=== PATIENT | female | born 1940 | race Caucasian/White ===

== ENCOUNTER 2016-09-19 07:24 | Day surgery (SDC) | payer MEDICARE, BC ==
[2016-09-19] MEDS ORDERED: Sodium Chloride 0.9% 1,000 ML IV SCH (08:00)
[2016-09-19] MEDS ORDERED: Midazolam 1 MG/ML 2 ML SDV ONE (08:19)
[2016-09-19] MEDS ORDERED: fentaNYL 100 MCG/2 ML SDV ONE (08:19)
[2016-09-19] MEDS ORDERED: Propofol 200 MG/20 ML SDV ONE (08:19)
[2016-09-19] MEDS ORDERED: Ondansetron 4 MG/2 ML SDV ONE (08:58)
--- NOTE | 2016-09-19 10:33 | OR ---
DATE OF PROCEDURE: 09/19/2016 PROCEDURE: Colonoscopy. FINDINGS: 1. Diverticulosis, extensive, but most densely concentrated in the traditional pattern of sigmoid colon. 2. Descending colon polyp #1, approximately 5 mm, completely removed using cold biopsy forceps. 3. Descending colon polyp #2, approximately 5 mm, completely removed using cold biopsy forceps. COMPLICATIONS: None. ASSISTANTS: None. ANESTHESIA: MAC. RISKS: Risks, benefits, alternatives, and limitations including, but not limited to infection, bleeding, and perforation were explained to the patient, and they wished to proceed. PREOPERATIVE DIAGNOSIS: History of colon polyps. POSTOPERATIVE DIAGNOSIS: History of colon polyps. PROCEDURE IN DETAIL: The patient was placed in the left lateral decubitus position. Digital rectal exam was performed without abnormality. The scope was introduced and advanced atraumatically to the ileocecal valve. The scope was brought back to the ascending, transverse, descending colon, and retroflexed. The aforementioned polyps were identified and completely removed. The diverticulosis would be described as not actively bleeding. Most dense in the sigmoid colon and no evidence of diverticulitis. No abnormality on retroflex. The patient tolerated the procedure well. Yfn Carrillo MD /[id number]
[2016-09-19 11:15] VITALS: BP 111/53
== END 2016-09-19 11:34 | disposition home or self-care (01) ==
LOC: JP.SDS 07:24
PROVIDERS: ATTEND Surgery
DX: Z12.11 Encounter for screening for malignant neoplasm of colon (principal); D12.4 Benign neoplasm of descending colon; K57.30 Diverticulosis of large intestine without perforation or abscess without bleeding; E11.9 Type 2 diabetes mellitus without complications; E78.00 Pure hypercholesterolemia, unspecified; Z86.010 Personal history of colon polyps; Z88.2 Allergy status to sulfonamides
CPT/HCPCS: 45385; J2250; J2405; J2704; J3010; 88305

== ENCOUNTER 2017-11-04 07:15 | Day surgery (SDC) | payer MEDICARE, BC ==
[2017-11-04] MEDS ORDERED: Lactated Ringers 1,000 ML IV SCH (07:45)
[2017-11-04] MEDS ORDERED: Bupivacaine 0.5%/EPINEPHrine 1:200,000 50 ML MDV ONE (08:05)
[2017-11-04] MEDS ORDERED: Propofol 200 MG/20 ML SDV ONE (08:07)
[2017-11-04] MEDS ORDERED: Ondansetron 4 MG/2 ML SDV ONE (08:07)
[2017-11-04] MEDS ORDERED: fentaNYL 100 MCG/2 ML SDV ONE (08:07)
[2017-11-04] MEDS ORDERED: Midazolam 1 MG/ML 2 ML SDV ONE (08:07)
[2017-11-04 10:05] VITALS: BP 151/70
== END 2017-11-04 10:27 | disposition home or self-care (01) ==
LOC: JP.SDS 07:15
PROVIDERS: ATTEND Obstetrics & Gynecology
DX: D25.0 Submucous leiomyoma of uterus (principal); E78.2 Mixed hyperlipidemia; Z87.891 Personal history of nicotine dependence; Z79.899 Other long term (current) drug therapy; Z88.2 Allergy status to sulfonamides
CPT/HCPCS: 36415; 58561; 86850; 86900; 86901; J2250; J2405; J2704; J3010; J3490; J7120

== ENCOUNTER 2019-09-17 06:12 | Day surgery (SDC) | payer MEDICARE ==
[2019-09-17] MEDS ORDERED: Sodium Chloride 0.9% 1,000 ML IV SCH (07:00)
[2019-09-17] MEDS ORDERED: fentaNYL 100 MCG/2 ML SDV ONE (07:34)
[2019-09-17] MEDS ORDERED: Propofol 200 MG/20 ML SDV ONE (07:34)
[2019-09-17 09:35] VITALS: BP 128/60; PULSE 52
--- NOTE | 2019-09-17 09:36 | OR ---
DATE OF PROCEDURE: 09/17/2019 SURGEON: Yfn Carrillo MD PROCEDURE: Colonoscopy. FINDINGS: Diverticulosis, moderate, limited to the sigmoid colon. PREOPERATIVE DIAGNOSIS: History of colon polyps. POSTOPERATIVE DIAGNOSIS: History of colon polyps. RISKS: Risks, benefits, alternatives, and limitations, including, but not limited to, infection, bleeding, and perforation, were explained to the patient, who wished to proceed. PROCEDURE IN DETAIL: The patient was placed in left lateral decubitus position. Digital rectal exam was performed without abnormality. The scope was introduced and advanced atraumatically to the ileocecal valve. Photo was taken. The scope was brought back through the ascending, transverse, and descending colon and retroflexed. No evidence of polyps. No old or new blood. No diverticulitis. No abnormalities on retroflexion. Preoperatively, the patient was concerned about a pocket, which was described by another physician. Most likely, this is diverticulosis, which she is referring to. The patient tolerated the procedure well. Yfn Carrillo MD /[id number]
== END 2019-09-17 10:10 | disposition home or self-care (01) ==
LOC: JP.SDS 06:12
PROVIDERS: ATTEND Surgery
DX: Z12.11 Encounter for screening for malignant neoplasm of colon (principal); K57.30 Diverticulosis of large intestine without perforation or abscess without bleeding; N18.9 Chronic kidney disease, unspecified; E03.9 Hypothyroidism, unspecified; E66.9 Obesity, unspecified; Z86.010 Personal history of colon polyps; Z98.890 Other specified postprocedural states; Z88.2 Allergy status to sulfonamides; Z68.32 Body mass index [BMI] 32.0-32.9, adult
CPT/HCPCS: G0105; J2704; J3010; J7030